=== PATIENT | female | born 1960 | race Caucasian/White ===

== ENCOUNTER → 2020-07-13 | Outpatient (CLI) | payer BC ==
[~2020-07-13] MED LIST: ACETAMINOPHEN650 MG PO; ALIGN4 MG PO; BENEFIBER PO; CLEOCIN HCL150 MG PO; LEVAQUIN500 MG PO; PANTOPRAZOLE SO40 MG PO; PHILLIPS STOOL SOFT PO; TIZANIDINE HCL4 M1 PO; TRAMADOL-ACETAMI1 EA PO
== END ==
LOC: MRI 09:42
PROVIDERS: ATTEND Specialist
DX: M54.2 Cervicalgia (principal)
CPT/HCPCS: 72141